=== PATIENT | male | born 1940 | race Hispanic/Latino ===

== ENCOUNTER 2019-05-27 18:12 | Inpatient (IN) | payer OTHER ==
[~2019-05-27] VITALS: Ht 180.3 cm; Wt 91.0 kg
[2019-05-27] MEDS ORDERED: ASPIRIN 325 MG TABLET ONE (18:20)
[2019-05-27] MEDS ORDERED: NITROGLYCERIN 1GM/1 INCH PACKET TD ONE (18:29)
[2019-05-27 18:35] LABS: BASOPHILS % (AUTO) 0.4 % (0.0-5.0); EOSINOPHILS % (AUTO) 0.7 % (0.0-8.0); HEMATOCRIT 41.2 % (42-54); LYMPHOCYTES % (AUTO) 13.2 % (21.0-51.0); MEAN CORPUSCULAR HEMOGLOBIN 32.4 pg (27.0-33.0); MEAN CORPUSCULAR HGB CONC 34.7 g/dL (32.0-36.0); MEAN CORPUSCULAR VOLUME 93.2 fL (79-99); MONOCYTES % (AUTO) 8.6 % (3.0-13.0); NEUTROPHILS % (AUTO) 76.1 % (40.0-77.0); PLATELET COUNT (AUTO) 217 K/uL (130-400); RED BLOOD CELL COUNT(AUTO) 4.42 MIL/uL (4.50-6.20); RED CELL DISTRIBUTION WIDTH 11.9 % (11.0-15.5); WHITE BLOOD COUNT (AUTO) 16.7 K/uL (4.8-10.8)
[2019-05-27 18:47] LABS: CREATININE 1.5 mg/dL (0.5-1.5); POTASSIUM 3.7 mmol/L (3.5-5.1)
[2019-05-27 18:49] LABS: INR 0.94 (0.85-1.15); PARTIAL THROMBOPLASTIN TIME 26.4 SEC (26.3-35.5); PROTHROMBIN TIME 10.2 SEC (9.6-11.6)
[2019-05-27 18:52] LABS: ALBUMIN 3.4 g/dL (3.5-5.0); BILIRUBIN,TOTAL 0.9 mg/dL (0.2-1.0)
[2019-05-27] MEDS ORDERED: CEFTRIAXONE SODIUM 1 GM ONE (19:37)
[2019-05-27] MEDS ORDERED: AZITHROMYCIN 500MG+NS 250ML 250 ML IV ONE (19:37)
[2019-05-27] MEDS ORDERED: INSULIN HUMULIN R 100 UNIT/ML 3ML ONE (19:38)
[2019-05-27] MEDS ORDERED: MORPHINE SULFATE 2 MG/ML 1ML SYG IV PRN (19:45)
[2019-05-27] MEDS ORDERED: NITROGLYCERIN 0.4 MG SL TAB SL PRN (19:45)
[2019-05-27] MEDS ORDERED: ONDANSETRON HCL 4 MG/2 ML VIAL IV PRN (19:45)
[2019-05-27] MEDS ORDERED: LACTULOSE 20 GM/30 ML UDCUP PO PRN (19:45)
[2019-05-27] MEDS ORDERED: ACETAMINOPHEN 325 MG TAB PO PRN ×2 (19:45)
[2019-05-27] MEDS: CEFTRIAXONE SODIUM 1 GM IV SCH (20:00)
[2019-05-27] MEDS: AZITHROMYCIN 500MG+NS 250ML 250 ML IV SCH (21:00)
[2019-05-27 21:55] LABS: CHOLESTEROL 109 mg/dL (<200); HDL CHOLESTEROL 38 mg/dL (29-71); LDL DIRECT 70 mg/dL (0-99); TRIGLYCERIDES 61 mg/dL (30-200)
[2019-05-27] MEDS: FAMOTIDINE 20MG TAB 20 MG TAB PO SCH (22:35)
[2019-05-27] MEDS: ATORVASTATIN CALCIUM 20 MG TABLET PO SCH (22:35)
[2019-05-27] MEDS: METOPROLOL TARTRATE 25 MG TAB PO SCH (22:35)
[2019-05-28] VITALS (15 sets, daily range): BP systolic 105–139; BP diastolic 55–91
[2019-05-28 05:54] LABS: BASOPHILS % (AUTO) 0.4 % (0.0-5.0); EOSINOPHILS % (AUTO) 1.8 % (0.0-8.0); HEMATOCRIT 37.3 % (42-54); MEAN CORPUSCULAR HEMOGLOBIN 31.9 pg (27.0-33.0); MEAN CORPUSCULAR HGB CONC 33.8 g/dL (32.0-36.0); MEAN CORPUSCULAR VOLUME 94.4 fL (79-99); MONOCYTES % (AUTO) 8.5 % (3.0-13.0); NEUTROPHILS % (AUTO) 75.8 % (40.0-77.0); PLATELET COUNT (AUTO) 195 K/uL (130-400); RED BLOOD CELL COUNT(AUTO) 3.95 MIL/uL (4.50-6.20); WHITE BLOOD COUNT (AUTO) 13.7 K/uL (4.8-10.8)
[2019-05-28 06:13] LABS: CREATININE 1.1 mg/dL (0.5-1.5); POTASSIUM 3.8 mmol/L (3.5-5.1)
[2019-05-28] MEDS: INSULIN HUMULIN R 100 UNIT/ML 3ML SQ SCH ×4 (06:53→17:44)
[2019-05-28] MEDS ORDERED: METF-444 PO (06:57)
[2019-05-28] MEDS: METOPROLOL TARTRATE 25 MG TAB PO SCH ×2 (07:44→19:45)
[2019-05-28] MEDS: FAMOTIDINE 20MG TAB 20 MG TAB PO SCH (07:44)
[2019-05-28] MEDS ORDERED: ENOXAPARIN SODIUM 40 MG/0.4 ML SYRINGE SQ SCH (09:00)
[2019-05-28] MEDS ORDERED: ASPIRIN 81MG TAB.CHEW PO SCH (09:00)
[2019-05-28] MEDS ORDERED: CHLORHEXIDINE GLUCONATE 473 ML MOUTHWASH MM PRN (13:30)
--- NOTE | 2019-05-28 15:12 | NUR ---
DCP MICHAEL attempted to contact patient's daughter, Virginie Rodriguez, [phone] but was only able to leave a message. MICHAEL will follow up.
[2019-05-28] MEDS ORDERED: IOHEXOL-350 75 ML VIAL IV ONE (15:28)
--- NOTE | 2019-05-28 15:40 | NUR ---
PT WAS TAKEN TO CT SCAN FOR CT FOR PE PROTOCOL AND BACK WITHIN 20 MINUTES. PT HAS NOT SHOWN ANY SHORTNESS OF BREATH OR COUGHING.
--- NOTE | 2019-05-28 18:00 | NUR ---
DR. CLARK HERE AND ASSESSED PT NO NEW ORDERS NOTED.
[2019-05-28 18:29] LABS: APPEARANCE,URINE Clear (CLEAR); BILIRUBIN,URINE Negative (NEGATIVE); COLOR,URINE Yellow (YELLOW); GLUCOSE, URINE (UA) 500 mg/dL (NEGATIVE); KETONES,URINE Negative (NEGATIVE); LEUKOCYTE ESTERASE ,URINE Negative (NEGATIVE); NITRATE,URINE Negative (NEGATIVE); OCCULT BLOOD,URINE Negative (NEGATIVE); PH,URINE 5.5 (5.0-8.0); PROTEIN,URINE Negative (NEGATIVE)
[2019-05-28 18:36] LABS: BACTERIA,URINE Rare /HPF (None Seen); RBC,URINE 0-1 /HPF (0-1); SQUAMOUS EPITHELIAL CELL,UR Rare /HPF (0-2); WBC,URINE 0-1 /HPF (0-1)
[2019-05-28] MEDS: AZITHROMYCIN 500MG+NS 250ML 250 ML IV SCH (19:44)
[2019-05-28] MEDS: CEFTRIAXONE SODIUM 1 GM IV SCH (19:44)
[2019-05-28] MEDS: ATORVASTATIN CALCIUM 20 MG TABLET PO SCH (19:45)
[2019-05-29 00:30] VITALS: BP 119/70
--- NOTE | 2019-05-29 02:05 | NUR ---
AMA and Refusal of treatment forms Patient stating " I'm being medically treated for the wrong reasons and hospital is doing extra unnecessary testing to charge insurance to make more money". Patient states "I'm being treated at the hospital for the wrong symptoms and wrong reasons". Patient had initially signed a REFUSAL OF TREATMENT form at approximately 1am with Nurse Nasrin Quarles when nurse help to answer the call light light. Patient stated does not want IV, blood pressure monitor, cardiac electrodes and pulse oximetry. At approximately 1:45am, patient requesting to leave AMA. Hospitalist MD ENEDELIA Pean central office equipment installer, and roundhouse firer/fireman all made aware of patients request via telephone. Patient was told e of the risk and consequences including heart attack, stroke, respiratory distress, and or even involving AMA and states " I understand". 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 Daughter said she was going to check on father in the morning. I spoke to daughter at 2:30am to re-emphasize AMA, doctor follow ups as outpatient, and patient to remain in quarantine till Covid results come back and daughter understands. Patient leaving AMA, in good and stable conditions, Alert and oriented X4, ambulatory, and stated he was going to drive home since parked car was in ER. I removed IV and refused to have vitals taken. Patient was very professional, and respectful toward medical staff prior to leaving AMA.
== END 2019-05-29 02:05 | disposition left against medical advice (07) | DRG 194 ==
LOC: EDH 18:12 → EDHIP 19:34 → 2BH 21:13
PROVIDERS: ADMIT Internal Medicine; ATTEND Internal Medicine
DX: J18.9 Pneumonia, unspecified organism (principal); E87.1 Hypo-osmolality and hyponatremia; R91.1 Solitary pulmonary nodule; R79.89 Other specified abnormal findings of blood chemistry; E11.65 Type 2 diabetes mellitus with hyperglycemia; Z87.891 Personal history of nicotine dependence; Z53.29 Procedure and treatment not carried out because of patient's decision for other reasons; Z20.828 Contact with and (suspected) exposure to other viral communicable diseases
CPT/HCPCS: 36415; 71045; 71275; 80048; 80053; 80061; 81001; 82550; 82948; 83605; 84484; 85025; 85378; 85610; 85730; 87040; 87633; 87635; 93005; 93970; G0378; J0456; J0696; J1650; J1815; Q9967

== ENCOUNTER → 2020-07-05 | Outpatient (CLI) | payer OTHER ==
[~2020-07-05] MED LIST: IOHEXOL-350 50ML VIAL IV ONE; METF-444 PO
== END | disposition home or self-care (01) ==
LOC: RAH 10:02
PROVIDERS: ATTEND Internal Medicine
DX: R94.2 Abnormal results of pulmonary function studies (principal); R91.8 Other nonspecific abnormal finding of lung field
CPT/HCPCS: 71260; Q9967

== ENCOUNTER 2021-01-23 12:57 | Emergency (ER) | payer OTHER ==
[~2021-01-23] VITALS: Ht 180.3 cm; Wt 93.0 kg
[~2021-01-23 12:57] MED LIST changes: -IOHEXOL-350 50ML VIAL IV ONE
[2021-01-23] MEDS ORDERED: ONDANSETRON 4MG INJ IVP ONE (13:30)
[2021-01-23] MEDS ORDERED: KETOROLAC 15MG/ML VIAL (15MG/ML) IV ONE (13:30)
[2021-01-23 13:41] LABS: BASOPHILS % (AUTO) 0.6 % (0.0-5.0); EOSINOPHILS % (AUTO) 2.1 % (0.0-8.0); HEMATOCRIT 43.3 % (42-54); LYMPHOCYTES % (AUTO) 30.4 % (21.0-51.0); MEAN CORPUSCULAR HGB CONC 34.4 g/dL (32.0-36.0); MEAN CORPUSCULAR VOLUME 92.9 fL (79-99); MONOCYTES % (AUTO) 10.9 % (3.0-13.0); NEUTROPHILS % (AUTO) 55.3 % (40.0-77.0); PLATELET COUNT (AUTO) 179 K/uL (130-400); RED BLOOD CELL COUNT(AUTO) 4.66 MIL/uL (4.50-6.20); RED CELL DISTRIBUTION WIDTH 12.5 % (11.0-15.5); WHITE BLOOD COUNT (AUTO) 9.4 K/uL (4.8-10.8)
[2021-01-23 13:51] LABS: APPEARANCE,URINE Clear (CLEAR); BILIRUBIN,URINE Negative (NEGATIVE); COLOR,URINE Yellow (YELLOW); GLUCOSE, URINE (UA) 500 mg/dL (NEGATIVE); KETONES,URINE Negative (NEGATIVE); LEUKOCYTE ESTERASE ,URINE Negative (NEGATIVE); NITRATE,URINE Negative (NEGATIVE); OCCULT BLOOD,URINE Negative (NEGATIVE); PROTEIN,URINE Trace mg/dL (NEGATIVE)
[2021-01-23] MEDS ORDERED: KETOROLAC 30MG VIAL (30MG/ML) ONE (13:53)
[2021-01-23 13:54] LABS: CREATININE 1.6 mg/dL (0.5-1.5); POTASSIUM 4.4 mmol/L (3.5-5.1)
[2021-01-23 13:58] LABS: ALBUMIN 4.1 g/dL (3.5-5.0); BILIRUBIN,TOTAL 0.8 mg/dL (0.2-1.0); CRP QUANTITATIVE 19.7 mg/L (0.00-9.0); TOTAL PROTEIN, SERUM 7.9 g/dL (6.0-8.3)
[2021-01-23 14:13] LABS: BACTERIA,URINE None Seen /HPF (None Seen); MUCUS,URINE Few LPF (None Seen); RBC,URINE 0-1 /HPF (0-1); SQUAMOUS EPITHELIAL CELL,UR 0-2 /HPF (0-2); WBC,URINE 0-1 /HPF (0-1)
[2021-01-23 15:07] VITALS: BP 135/74
[2021-01-23] MEDS ORDERED: LACT10PA5 PO (15:26)
[2021-01-23] MEDS ORDERED: MAGNESIUM CITRATE 296 ML SOLUTION PO ONE (16:30)
[2021-01-23] MEDS ORDERED: LACTULOSE 20 GM/30 ML UDCUP PO ONE (16:30)
== END 2021-01-23 15:56 | disposition home or self-care (01) ==
LOC: EDH 12:57
DX: K59.00 Constipation, unspecified (principal); K57.90 Diverticulosis of intestine, part unspecified, without perforation or abscess without bleeding; E11.9 Type 2 diabetes mellitus without complications; Z79.84 Long term (current) use of oral hypoglycemic drugs
CPT/HCPCS: 36415; 74176; 80053; 81001; 83605; 84484; 85025; 86140; 96374; 96375; 99284; J1885; J2405

== ENCOUNTER → 2023-09-16 | Outpatient (CLI) | payer OTHER ==
[~2023-09-16] MED LIST changes: +LACT10PA5 PO
== END | disposition home or self-care (01) ==
LOC: RAH 14:40
PROVIDERS: ATTEND Internal Medicine
DX: I70.203 Unspecified atherosclerosis of native arteries of extremities, bilateral legs (principal); M79.605 Pain in left leg; E11.51 Type 2 diabetes mellitus with diabetic peripheral angiopathy without gangrene
CPT/HCPCS: 93925